=== PATIENT | male | born 2005 | race Caucasian/White ===

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

== ENCOUNTER → 2024-07-20 15:44 | Outpatient (CLI) | payer OTHER, MEDICAID, SELFPAY | PROVIDERS: Visit Provider Chiropractor | DX: J02.9 Acute pharyngitis, unspecified (principal) | CPT/HCPCS: 87070 ==